=== PATIENT | male | born 1985 | race Caucasian/White ===

== ENCOUNTER 2019-07-22 12:16 | Emergency (ER) | payer OTHER ==
[~2019-07-22] VITALS: Ht 177.8 cm; Wt 83.9 kg
[~2019-07-22 12:16] MED LIST: ACETAMINOPHEN-1 EAC1 PO; ADVIL200 M1 PO; CEPHALEXIN500 MG PO; EXCEDRIN EXTRA1 EAC1 PO; IBUPROFEN600 MG PO; NAPROSYN500 MG PO; NAPROXEN500 MG PO; NORCO 5-325 TA1 EACH PO; ULTRAM50 MG PO; ZOFRAN ODT4 MG SL
--- OUTSIDE RECORDS SUMMARY | 2019-07-22 12:20 | XMS ---
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 [facility] has no Care Guidelines for this patient. Max VISIT COUNT (12 MO.) 1 [facility] TOTAL 1 NOTE: Visits indicate total known visits. ED/C VISIT TRACKING (12 MO.) 07/22/2019 12:17 [facility] TYPE: Emergency COMPLAINT: - R HAND INJURY INPATIENT VISIT TRACKING (12 MO.) No inpatient visits to display in this time frame [email or web address]
== END 2019-07-22 13:43 | disposition home or self-care (01) ==
LOC: ED 12:16
DX: S62.336A Displaced fracture of neck of fifth metacarpal bone, right hand, initial encounter for closed fracture (principal); F17.200 Nicotine dependence, unspecified, uncomplicated; W10.9XXA Fall (on) (from) unspecified stairs and steps, initial encounter
CPT/HCPCS: 29125; 73130; 99283-25; 99406

== ENCOUNTER 2024-10-28 19:20 | Emergency (ER) | payer OTHER, MEDICARE ==
[~2024-10-28] VITALS: Ht 177.8 cm; Wt 80.0 kg
[2024-10-28] MEDS ORDERED: IBLOOD GLUCOSE TEST STRIP 1 EA TEST VI ONE (19:30)
[2024-10-28 19:37] LABS: HEMATOCRIT 46.6 % (35.0-50.0); HEMOGLOBIN 16.3 g/dL (12.0-18.0); MCV 88.5 fl (81-99); PLATELET COUNT 286 K/uL (140-440); RBC 5.27 M/ul (4.3-5.7); RDW 12.9 (10.5-15.0)
[2024-10-28 19:47] LABS: BILIRUBIN, URINE NEGATIVE (negative); BLOOD/HGB, URINE NEGATIVE (Negative); KETONE, URINE NEGATIVE (Negative); LEUK ESTERASE, URINE NEGATIVE (negative); NITRITE, URINE NEGATIVE (negative)
[2024-10-28 19:54] LABS: ALBUMIN 4.1 g/dL (3.4-5.0); ALBUMIN/GLOBULIN RATIO 0.98 (1.1-2.4); ALKALINE PHOSPHATASE 104 U/L (46-116); ALT (SGPT) 85 U/L (14-59); ANION GAP 16.5 (7-21); AST (SGOT) 44 U/L (15-37); BILIRUBIN, TOTAL 0.2 mg/dL (0.2-1.0); BUN/CREATININE RATIO 13.04 (6.0-28.6); CARBON DIOXIDE 26 mmol/L (21-32); CHLORIDE 103 mmol/L (98-107); CREATININE, SERUM 0.92 mg/dL (0.70-1.30); GLOMERULAR FILTRATION RATE,EST 110 mL/min (>60); POTASSIUM 3.5 mmol/L (3.5-5.1); PROTEIN, TOTAL 8.3 g/dL (6.4-8.2); UREA NITROGEN 12 mg/dL (7-18)
[2024-10-28 19:57] LABS: ALCOHOL, MEDICAL 368 ng/dL (<3)
[2024-10-28 20:00] LABS: AMPHETAMINES, URINE NEGATIVE (NEGATIVE); BARBITURATES, URINE NEGATIVE (NEGATIVE); BENZODIAZEPINE, URINE NEGATIVE (NEGATIVE); BUPRENORPHINE, URINE NEGATIVE (NEGATIVE); CANNABINOID, URINE NEGATIVE (NEGATIVE); COCAINE, URINE NEGATIVE (NEGATIVE); ECSTASY, URINE NEGATIVE (NEGATIVE); FENTANYL, URINE NEGATIVE (NEGATIVE); METHADONE, URINE NEGATIVE (NEGATIVE); OPIATES, URINE NEGATIVE (NEGATIVE); OXYCODONE, URINE NEGATIVE (NEGATIVE); PHENCYCLIDINE, URINE NEGATIVE (NEGATIVE)
[2024-10-28] MEDS ORDERED: LORazepam 2 MG/ML VIAL IV ONE (20:00)
[2024-10-28 20:01] LABS: BASOPHILS, MANUAL DIFF 2; LYMPHOCYTES, MANUAL DIFF 50; MONOCYTES, MANUAL DIFF 7; NEUTROPHILS, MANUAL DIFF 41
[2024-10-28] MEDS ORDERED: levETIRAcetam 500 MG/5 ML VIAL IV ONE ×2 (20:30→22:45)
[2024-10-29 00:38] VITALS: BP 115/69
--- NOTE | 2024-10-29 22:35 | EKG ---
[facility] [address] [place] [address] Signed Sinus tachycardia Rightward axis Borderline ECG No previous ECGs available Confirmed by Patric Gifford MD () on 10/29/2024 10:35:17 PM Electronically Signed By: PATRIC GIFFORD MD 10/29/242234 PATIENT NAME: OTILIASONJA FUENTES Electrocardiogram DATE OF : 89 PHYSICIAN: PATRIC GIFFORD MD REPORT #: [id number] REPORT IS CONFIDENTIAL AND NOT TO BE RELEASED WITHOUT AUTHORIZATION
== END 2024-10-29 00:38 | disposition short-term general hospital (02) ==
LOC: ED 19:20
PROVIDERS: Emergency Medicine
DX: R41.82 Altered mental status, unspecified (principal); F10.129 Alcohol abuse with intoxication, unspecified; F17.210 Nicotine dependence, cigarettes, uncomplicated
CPT/HCPCS: 36415; 70450; 71045; 80053; 80307; 81003; 84484; 85025; 93005; 93010; 96374; 96375; 96376; 99285-25; G0480; J1953; J2060